=== PATIENT | male | born 1950 | race Caucasian/White ===

== ENCOUNTER 2017-09-16 09:02 | Outpatient (CLI) | payer MEDICARE ==
--- NOTE | 2017-09-17 10:41 | RAD ---
MODIFIED BARIUM SWALLOW: HISTORY: Dysphagia pharyngeal phase, R13.13; dysphagia pharyngeal esophageal phase, R13.14. Dysphagia followi ng other, I69.891. COMPARISON: None. FINDINGS: The examination was performed by the speech pathologist. The radiologist was not present. Multiple consistencies of contrast were given by the speech pathologist. There is residual contrast within the vallecula and oral cavity. There is flash silent penetration with thin liquid contrast vi a straw. IMPRESSION: Fluoroscopy for the speech pathologist. Please see their report for detailed findings. POS: [facility]
== END 2017-09-16 09:03 | disposition home or self-care (01) ==
PROVIDERS: ATTEND Internal Medicine Gastroenterology
DX: I69.891 Dysphagia following other cerebrovascular disease (principal); R13.13 Dysphagia, pharyngeal phase; R13.14 Dysphagia, pharyngoesophageal phase; R49.0 Dysphonia; G12.29 Other motor neuron disease
CPT/HCPCS: 74230; G8996-GN-CI; G8997-GN-CI; G8998-GN-CI

== ENCOUNTER 2017-11-26 14:13 | Emergency (ER) | payer MEDICARE ==
[2017-11-26 15:10] LABS: #Eosinphils 0.4 thou/uL (0.0-0.7); #Lymphocytes 1.2 thou/uL (1.20-3.40); #Monocytes 0.7 thou/uL (0.11-0.59); #Neutrophils 4.8 thou/uL (1.40-6.50); %Basophils 0.4 % (0.0-1.0); %Eosinophils 5.1 % (0.0-10.0); %Lymphocytes 17.5 % (21.0-51.0); %Monocytes 9.7 % (0.0-10.0); %Neutrophils 67.3 % (42.0-75.0); Hemoglobin 14.9 g/dL (14.0-18.0); Mean Corpuscular HGB CONC 33.2 g/dL (32.0-36.0); Mean Corpuscular Hemoglobin 33.1 pg (27.0-31.0); Mean Corpuscular Volume 99.5 fL (78.0-98.0); Platelet Count 177 thou/uL (130-400); RBC Distribution Width 11.8 % (11.5-14.5); Red Blood Cell (RBC) Count 4.52 mill/uL (4.70-6.10); White Blood Cell (WBC) Count 7.1 thou/uL (4.8-10.8)
--- NOTE | 2017-11-26 15:35 | RAD ---
CHEST 2 VIEWS: HISTORY: Cough. COMPARISON: None. FINDINGS: Lungs are clear. No pneumothorax or effusion. Cardiac silhouette and mediastinal contours are withi n normal limits. IMPRESSION: No acute intrathoracic abnormality. POS: [facility]
[2017-11-26 15:36] LABS: ALT (SGPT) 20 U/L (8-55); AST (SGOT) 21 U/L (5-34); Albumin 4.1 g/dL (3.4-4.8); Alkaline Phosphatase 57 U/L (40-150); Anion Gap 13 mmol/L (10-20); BUN (Urea Nitrogen) 32 mg/dL (8.4-25.7); Bilirubin, Total 0.8 mg/dL (0.2-1.2); Calc. Creatinine Clearance 0 mL/min (70-130); Carbon Dioxide 24 mmol/L (23-31); Chloride 108 mmol/L (98-107); Estimated GFR-MDRD 87; Globulin 2.7 g/dL (2.4-3.5); Glucose 99 mg/dL (80-115); Potassium 3.6 mmol/L (3.5-5.1); Protein, Total 6.8 g/dL (5.8-8.1); Sodium 141 mmol/L (136-145)
== END 2017-11-26 16:27 | disposition home or self-care (01) ==
LOC: ERS 14:13
DX: K21.9 Gastro-esophageal reflux disease without esophagitis (principal); I10 Essential (primary) hypertension; E78.00 Pure hypercholesterolemia, unspecified
CPT/HCPCS: 36415; 71046; 80053; 85025